=== PATIENT | male | born 1950 | race Caucasian/White ===

== ENCOUNTER 2019-03-16 12:14 | Emergency (ER) | payer MEDICARE, OTHER ==
--- NOTE | 2019-03-16 12:17 | ERPHSYRPT ---
- History of Present Illness Time Seen by Provider: 03/16/19 12:17 Source: patient Exam Limitations: no limitations Physician History: 68 y/o white male presents with right inner thigh laceration. occurred bar captain. pt accidentally cut with chainsaw while cutting a tree. pts tetanus status not utd. pt walked in on his own. no complaints of weakness. Timing/Duration: today Quality: painful Severity: mild Location: extremities (right inner thigh) Possible Causes: other (chain sw) Associated Symptoms: denies symptoms Allergies/Adverse Reactions: No Known Drug Allergies Allergy (Verified 03/16/19 12:35) - Review of Systems Constitutional: No Symptoms Eyes: No Symptoms Ears, Nose, & Throat: No Symptoms Respiratory: No Symptoms Cardiac: No Symptoms Abdominal/Gastrointestinal: No Symptoms Genitourinary Symptoms: No Symptoms Musculoskeletal: No Symptoms Skin: No Symptoms Neurological: No Symptoms Psychological: No Symptoms Endocrine: No Symptoms Hematologic/Lymphatic: No Symptoms Immunological/Allergic: No Symptoms All Other Systems: Reviewed and Negative - Past Medical History Pertinent Past Medical History: No Neurological History: No Pertinent History ENT History: No Pertinent History Cardiac History: No Pertinent History Respiratory History: No Pertinent History Endocrine Medical History: No Pertinent History Musculoskeletal History: No Pertinent History GI Medical History: No Pertinent History History: No Pertinent History Psycho-Social History: No Pertinent History Male Reproductive Disorders: No Pertinent History - Past Surgical History Neuro Surgical History: No Pertinent History Cardiac: No Pertinent History Respiratory: No Pertinent History Gastrointestinal: No Pertinent History Genitourinary: No Pertinent History Musculoskeletal: No Pertinent History Male Surgical History: No Pertinent History - Social History Alcohol Use: None Drug Use: none - Nursing Vital Signs Nursing Vital Signs: Initial Vital Signs Temperature 98.4 F 03/16/19 12:33 Pulse Rate 76 03/16/19 12:33 Respiratory Rate 18 03/16/19 12:33 Blood Pressure 151/82 03/16/19 12:33 O2 Sat by Pulse Oximetry 92 L 03/16/19 12:33 Pain Scale Pain Intensity 6 - Physical Exam General Appearance: no apparent distress, alert Eye Exam: PERRL/EOMI, eyes nml inspection Ears, Nose, Throat Exam: normal ENT inspection, moist mucous membranes Neck Exam: normal inspection, non-tender, supple, full range of motion Respiratory Exam: airway intact, No chest tenderness Gastrointestinal/Abdomen Exam: soft, No tenderness Rectal Exam: not done Back Exam: normal inspection, normal range of motion, No CVA tenderness, No vertebral tenderness Extremity Exam: lacerations (approx 10cm right inner thigh laceration. no active bleeding and no fb. laceration throughsubq tissue level into but not through muscle layer. ), tenderness, other (pt is neurovascularly intact. no tendon or ligament involvement clinically. 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, normal mood/affect, nml cerebellar function, nml station & gait, sensation nml Skin Exam: normal color, laceration (see above) Lymphatic Exam: No adenopathy SpO2 Interpretation: normal O2 Delivery: Room Air Procedures - Laceration/Wound Repair Right Medial Thigh Wound Location: Right, upper leg Wound Length (cm): 10 Wound's Depth, Shape: into muscle Wound Explored: in bloodless field Irrigated: Yes Hibiclens Prep: Yes Anesthesia: local, 1% Lidocaine Volume Anesthetic (ccs): 15 Wound Repaired With: sutures, Guerda Suture Size/Type: 3-0, nylon, vicryl Number of Sutures: 29 (6 deep vicryl, 5 nylon and 18 guerda) Layer Closure?: Yes Deep Layer Suture Size/Type: 3:0 (vicryl) Number Deep Layer Sutures: 6 Sterile Dressing Applied?: Yes Splint Applied?: No Progress: 03/16/19 13:21 pt giovana well. no complications. harper eng dressed wound. - Course Nursing assessment & vital signs reviewed: Yes Ordered Tests: Medication Summary Discontinued Medications Generic Name Dose Route Start Last Admin Trade Name Silver PRN Reason Stop Dose Admin Hydrocodone Bitart/Acetaminophen 1 tab 03/16/19 12:43 03/16/19 12:49 [place] 5/325 Mg PO 03/16/19 12:44 1 tab STAT ONE Administration Hydrocodone Bitart/Acetaminophen Confirm 03/16/19 12:46 [place] 5/325 Mg Administered 03/16/19 12:47 Dose 1 tab .ROUTE .STK-MED ONE Cephalexin HCl 500 mg 03/16/19 12:42 03/16/19 12:49 Keflex 500 Mg PO 03/16/19 12:43 500 mg STAT ONE Administration Cephalexin HCl Confirm 03/16/19 12:46 Keflex 500 Mg Administered 03/16/19 12:47 Dose 500 mg .ROUTE .STK-MED ONE Diphtheria/Tetanus/Acell Pertussis 0.5 ml 03/16/19 12:42 03/16/19 12:49 Adacel Vial IM 03/16/19 12:43 0.5 ml .ONCE ONE Administration Diphtheria/Tetanus/Acell Pertussis Confirm 03/16/19 12:46 Adacel Vial Administered 03/16/19 12:47 Dose 0.5 ml IM .STK-MED ONE Lidocaine HCl Confirm 03/16/19 12:38 Xylocaine 1% Hcl 20 Ml Mdv Administered 03/16/19 12:39 Dose 20 ml .ROUTE .STK-MED ONE Lidocaine HCl 20 ml 03/16/19 12:47 03/16/19 12:50 Xylocaine 1% Hcl 20 Ml Mdv IJ 03/16/19 12:48 20 ml STAT ONE Administration Lidocaine/Epinephrine 15 ml 03/16/19 12:43 03/16/19 12:48 Xylocaine 1%/Epi 1:[id number] Mdv 20 Ml IJ 03/16/19 12:44 Not Given STAT ONE - Progress Progress: improved Counseled pt/family regarding: diagnosis, need for follow-up - Departure Departure Disposition: Home Clinical Impression: Laceration of right thigh without complication Condition: Stable Critical Care Time: No Referrals: Provider,Unknown [NON-STAFF PHY W/O PRIVILEGES] - Additional Instructions: keep site dry for 24 hours. after 24 hours, remove dressing and wash daily and reapply bandage. no lotions ointments or creams. return to ED in 10days for wound evaluation and suture/staple removal if indicated. return sooner if concerns about wound. Prescriptions: Hydrocodone/APAP 5/325 [[place] 5/325 mg] 1 each PO Q8H PRN PRN #10 tablet MDD 3 PRN Reason: Pain Levofloxacin [Levaquin 500 MG Tablet] 500 mg PO DAILY #7 tablet
[2019-03-16] MEDS ORDERED: XYLOCAINE 1% HCL 20 ML MDV ONE (12:38)
[2019-03-16] MEDS ORDERED: Adacel Vial IM ONE ×2 (12:42→12:46)
[2019-03-16] MEDS ORDERED: KEFLEX 500 MG PO ONE (12:42)
[2019-03-16] MEDS ORDERED: NORCO 5/325 MG PO ONE (12:43)
[2019-03-16] MEDS ORDERED: XYLOCAINE 1%/Epi 1:100000 MDV 20 ML IJ ONE (12:43)
[2019-03-16] MEDS ORDERED: NORCO 5/325 MG ONE (12:46)
[2019-03-16] MEDS ORDERED: KEFLEX 500 MG ONE (12:46)
[2019-03-16] MEDS ORDERED: XYLOCAINE 1% HCL 20 ML MDV IJ ONE (12:47)
[2019-03-16 13:23] VITALS: BP 140/70; PULSE 90; O2SAT 98
== END 2019-03-16 13:37 | disposition home or self-care (01) ==
LOC: EDBD 12:14 → ED 12:14
DX: S71.111A Laceration without foreign body, right thigh, initial encounter (principal); W45.8XXA Other foreign body or object entering through skin, initial encounter; W29.3XXA Contact with powered garden and outdoor hand tools and machinery, initial encounter
CPT/HCPCS: 12004; 90471; 90715; 96372; 99284; A9270-GY

== ENCOUNTER 2019-03-25 09:32 | Emergency (ER) | payer MEDICARE, OTHER ==
--- NOTE | 2019-03-25 09:44 | ERPHSYRPT ---
- History of Present Illness Time Seen by Provider: 03/25/19 09:38 Source: patient Exam Limitations: no limitations Physician History: Pt is here for marilyn removal from his right knee, he cut it 9 days ago with a circular saw, sutured and stapled here. He denies any complaints, no pain, discharge, fever or other complaints. Timing/Duration: day(s) (9) Location: extremities (right medial knee and thigh) Associated Symptoms: denies symptoms Allergies/Adverse Reactions: No Known Drug Allergies Allergy (Verified 03/16/19 12:35) Hx Tetanus, Diphtheria Vaccination/Date Given: No - Review of Systems Constitutional: No Symptoms All Other Systems: Reviewed and Negative - Past Medical History Pertinent Past Medical History: No Neurological History: No Pertinent History ENT History: No Pertinent History Cardiac History: No Pertinent History Respiratory History: No Pertinent History Endocrine Medical History: No Pertinent History Musculoskeletal History: No Pertinent History GI Medical History: No Pertinent History History: No Pertinent History Psycho-Social History: No Pertinent History Male Reproductive Disorders: No Pertinent History - Past Surgical History Past Surgical History: No Neuro Surgical History: No Pertinent History Cardiac: No Pertinent History Respiratory: No Pertinent History Gastrointestinal: No Pertinent History Genitourinary: No Pertinent History Musculoskeletal: No Pertinent History Male Surgical History: No Pertinent History - Social History Smoking Status: Current every day smoker How long have you smoked: 55 years Exposure to second hand smoke: Yes Alcohol Use: None Drug Use: none Patient Lives Alone: No - Physical Exam General Appearance: no apparent distress Ears, Nose, Throat Exam: normal ENT inspection Respiratory Exam: normal breath sounds Cardiovascular Exam: regular rate/rhythm Gastrointestinal/Abdomen Exam: soft Back Exam: normal inspection Extremity Exam: other (right medial knee and distal thigh: 10 cm long J shaped laceration healed with 18 marilyn and several sutures in, no discharged, severe redness, wound healed pp. ) Skin Exam: normal color, warm SpO2 Interpretation: normal O2 Delivery: Room Air - Course Nursing assessment & vital signs reviewed: Yes - Progress Progress: unchanged Progress Note: 03/25/19 09:46 18 marilyn removed, sutures left behind for 3-4 more days, pt feels fine, discharge to return after 4 days to remove the sutures . Counseled pt/family regarding: diagnosis, need for follow-up - Departure Departure Disposition: Home Clinical Impression: Laceration of knee Qualifiers: Encounter type: initial encounter Laterality: right Qualified Code(s): S81.011A - Laceration without foreign body, right knee, initial encounter Condition: Stable Critical Care Time: No Referrals: RIKA FLORES II [Primary Care Provider] - Instructions: Laceration Repair With Stitches (DC) Additional Instructions: Return after 4 days to removed sutures, or if severe pain, discharge, redness, or fever> 102 F!
[2019-03-25 09:54] VITALS: BP 156/87; PULSE 80; O2SAT 97
== END 2019-03-25 10:03 | disposition home or self-care (01) ==
LOC: ED 09:32
DX: Z48.02 Encounter for removal of sutures (principal); S81.011D Laceration without foreign body, right knee, subsequent encounter; W31.2XXA Contact with powered woodworking and forming machines, initial encounter; Y93.89 Activity, other specified
CPT/HCPCS: 99283